=== PATIENT | male | born 1960 | race Caucasian/White ===

== ENCOUNTER 2017-12-22 10:48 | Inpatient (IN) | payer MEDICARE, MEDICAID ==
[~2017-12-22] VITALS: Ht 167.6 cm; Wt 78.2 kg
[2017-12-22] MEDS ORDERED: DEXTROSE (50%) 50ML SYRG IV ONE (11:15)
[2017-12-22 12:09] LABS: Urine Bacteria NONE SEEN /hpf (None Seen); Urine Blood Negative /uL (Negative); Urine Specific Gravity 1.016 (1.001-1.035); Urine WBC 1 /hpf (0 - 3)
[2017-12-22 12:10] LABS: Basophils # (auto) 0.1 uL; Basophils % (auto) 0.4 % (0.0-2.0); Eosinophils # (auto) 0.4 uL; Hematocrit 36.5 % (41.0-53.0); Hemoglobin 11.8 g/dL (13.5-17.5); Lymphocytes # (auto) 0.9 uL; Lymphocytes % (auto) 7.9 % (10.0-50.0); Mean Corpuscular Hemoglobin 28.6 pg (28.0-32.0); Mean Corpuscular Hgb Conc. 32.4 g/dL (32.0-36.0); Mean Corpuscular Volume 88.1 fL (80.0-100.0); Monocytes # (auto) 0.9 uL; Monocytes % (auto) 7.7 % (0.0-12.0); Neutrophils # (auto) 9.5 uL; Platelet Count (auto) 376 10^3/uL (140-450); Red Blood Cells 4.14 10^6/uL (4.5-5.90); Red Cell Distribution Width 17.6 % (11.8-14.3); White Blood Cell 11.7 10^3/uL (4.4-10.8)
[2017-12-22 12:29] LABS: Albumin 3.2 g/dL (3.4-5.0); BUN/Creatinine Ratio 23.5; Calcium 8.4 mg/dL (8.5-10.1); Magnesium 2.2 mg/dL (1.6-2.6); Potassium 4.1 mmol/L (3.5-5.1)
[2017-12-22 12:32] LABS: Bilirubin, Total 0.1 mg/dL (0.2-1.0); Total Protein 6.8 g/dL (6.4-8.2)
[2017-12-22] MEDS ORDERED: LISINOPRIL 10 MG TAB PO ONE (16:00)
[2017-12-22] MEDS ORDERED: ONDANSETRON HCL 4 MG/2 ML VIAL IV PRN (16:00)
[2017-12-22] MEDS ORDERED: MORPHINE SULFATE 8mg/ml INJ SDV IV PRN (16:00)
[2017-12-22] MEDS ORDERED: cloNIDine HCL 0.1 MG TAB PO PRN (16:00)
[2017-12-22] MEDS ORDERED: DEXTROSE (50%) 50ML SYRG IV PRN (16:00)
[2017-12-22] MEDS: ACCU-CHEK COMFORT CURVE STRIP VI SCH (16:47)
[2017-12-22] MEDS: InsuLIN REG 1unit/0.01ml Soln (100units/ml) SC SCH (16:49)
[2017-12-22] MEDS: SODIUM CHLORIDE 0.9% 1,000 ML IV SCH (16:53)
[2017-12-22] MEDS: ENOXAPARIN SOD 40 MG/0.4 ML SYRINGE SC SCH (16:54)
[2017-12-22 21:30] VITALS: BP 150/80
[2017-12-22 21:45] VITALS: BP 150/80
[2017-12-23] MEDS: InsuLIN REG 1unit/0.01ml Soln (100units/ml) SC SCH ×5 (00:30→21:54)
[2017-12-23] MEDS: ACCU-CHEK COMFORT CURVE STRIP VI SCH ×5 (00:30→21:54)
[2017-12-23 05:03] VITALS: BP 156/66
[2017-12-23] MEDS: SODIUM CHLORIDE 0.9% 1,000 ML IV SCH (05:04)
[2017-12-23 05:57] LABS: Basophils # (auto) 0.1 uL; Basophils % (auto) 1.1 % (0.0-2.0); Eosinophils # (auto) 0.6 uL; Eosinophils % (auto) 7.3 % (0.0-7.0); Hematocrit 35.9 % (41.0-53.0); Hemoglobin 11.8 g/dL (13.5-17.5); Lymphocytes # (auto) 2.1 uL; Lymphocytes % (auto) 23.2 % (10.0-50.0); Mean Corpuscular Hemoglobin 29.1 pg (28.0-32.0); Monocytes # (auto) 0.8 uL; Monocytes % (auto) 8.5 % (0.0-12.0); Neutrophils # (auto) 5.3 uL; Neutrophils % (auto) 59.9 % (37.0-80.0); Nucleated Red Blood Cells % 0.2 %; Platelet Count (auto) 399 10^3/uL (140-450); Red Blood Cells 4.07 10^6/uL (4.5-5.90); Red Cell Distribution Width 17.7 % (11.8-14.3); White Blood Cell 8.9 10^3/uL (4.4-10.8)
[2017-12-23 06:10] LABS: Calcium 8.8 mg/dL (8.5-10.1); Potassium 3.9 mmol/L (3.5-5.1)
[2017-12-23 08:00] VITALS: BP 162/74
[2017-12-23 09:00] VITALS: BP 162/74
[2017-12-23] MEDS: PANTOPRAZOLE 40 MG TAB PO SCH (09:47)
[2017-12-23] MEDS: LISINOPRIL 10 MG TAB PO SCH (09:48)
[2017-12-23] MEDS: ENOXAPARIN SOD 40 MG/0.4 ML SYRINGE SC SCH (09:49)
[2017-12-23 13:00] VITALS: BP 159/82
[2017-12-23 16:57] VITALS: BP 157/78
[2017-12-23 22:24] VITALS: BP 171/87
[2017-12-24] MEDS: SODIUM CHLORIDE 0.9% 1,000 ML IV SCH ×2 (00:12→10:00)
[2017-12-24 05:28] VITALS: BP 148/98
[2017-12-24] MEDS: ACCU-CHEK COMFORT CURVE STRIP VI SCH ×4 (06:31→21:33)
[2017-12-24] MEDS: InsuLIN REG 1unit/0.01ml Soln (100units/ml) SC SCH ×4 (06:31→21:33)
[2017-12-24 08:00] VITALS: BP 127/75
[2017-12-24 09:00] VITALS: BP 127/75
[2017-12-24] MEDS: PANTOPRAZOLE 40 MG TAB PO SCH (09:33)
[2017-12-24] MEDS: ENOXAPARIN SOD 40 MG/0.4 ML SYRINGE SC SCH (09:34)
[2017-12-24] MEDS: LISINOPRIL 10 MG TAB PO SCH (09:34)
[2017-12-24] MEDS: HYDROcodone-ACET 5/325MG TAB PO PRN ×2 (11:53→23:20)
[2017-12-24 14:00] VITALS: BP 156/89
[2017-12-24 17:00] VITALS: BP 140/86
[2017-12-24 21:34] VITALS: BP 157/86
[2017-12-25] MEDS: SODIUM CHLORIDE 0.9% 1,000 ML IV SCH (02:06)
[2017-12-25 05:00] VITALS: BP 139/66
[2017-12-25] MEDS: ACCU-CHEK COMFORT CURVE STRIP VI SCH (06:45)
[2017-12-25] MEDS: InsuLIN REG 1unit/0.01ml Soln (100units/ml) SC SCH (06:45)
[2017-12-25] MEDS: PANTOPRAZOLE 40 MG TAB PO SCH (08:37)
[2017-12-25] MEDS: LISINOPRIL 10 MG TAB PO SCH (08:37)
[2017-12-25] MEDS: ENOXAPARIN SOD 40 MG/0.4 ML SYRINGE SC SCH (08:38)
[2017-12-25 09:00] VITALS: BP 141/79
[2017-12-25 13:00] VITALS: BP 163/89
== END 2017-12-25 15:30 | disposition home or self-care (01) | DRG 637 ==
LOC: ER 10:48 → OVERFLOW 10:49 → WEST WING 21:15
PROVIDERS: ADMIT Internal Medicine; ATTEND Internal Medicine
DX: E10.649 Type 1 diabetes mellitus with hypoglycemia without coma (principal); G93.40 Encephalopathy, unspecified; F17.200 Nicotine dependence, unspecified, uncomplicated; I10 Essential (primary) hypertension; Z86.73 Personal history of transient ischemic attack (TIA), and cerebral infarction without residual deficits; Z79.4 Long term (current) use of insulin
CPT/HCPCS: 36415; 71045; 80048; 80053; 81001; 82962; 83036; 83735; 85025; 93005; 94761; 96374; 96375; 97163; J1815; J2270

== ENCOUNTER 2018-01-08 18:13 | Inpatient (IN) | payer MEDICARE, MEDICAID ==
[~2018-01-08] VITALS: Ht 165.1 cm; Wt 75.5 kg
[2018-01-08 20:06] LABS: Basophils # (auto) 0.1 uL; Basophils % (auto) 1.3 % (0.0-2.0); Eosinophils # (auto) 0.5 uL; Eosinophils % (auto) 5.9 % (0.0-7.0); Hemoglobin 11.2 g/dL (13.5-17.5); Lymphocytes # (auto) 1.7 uL; Lymphocytes % (auto) 22.6 % (10.0-50.0); Mean Corpuscular Hgb Conc. 32.9 g/dL (32.0-36.0); Mean Corpuscular Volume 88.3 fL (80.0-100.0); Monocytes # (auto) 0.7 uL; Monocytes % (auto) 8.8 % (0.0-12.0); Neutrophils # (auto) 4.7 uL; Neutrophils % (auto) 61.4 % (37.0-80.0); Nucleated Red Blood Cells % 0.1 %; Platelet Count (auto) 418 10^3/uL (140-450); Red Blood Cells 3.85 10^6/uL (4.5-5.90); Red Cell Distribution Width 17.3 % (11.8-14.3); White Blood Cell 7.7 10^3/uL (4.4-10.8)
[2018-01-08 20:24] LABS: Albumin 3.6 g/dL (3.4-5.0); Calcium 8.8 mg/dL (8.5-10.1); Potassium 5.1 mmol/L (3.5-5.1)
[2018-01-08 20:26] LABS: Bilirubin, Total 0.3 mg/dL (0.2-1.0); Total Protein 7.5 g/dL (6.4-8.2)
[2018-01-08 20:38] LABS: BUN/Creatinine Ratio 23.4
[2018-01-08] MEDS ORDERED: SODIUM CHLORIDE 0.9% 1,000 ML IV ONE ×2 (20:56→21:30)
[2018-01-08] MEDS ORDERED: InsuLIN REG 1unit/0.01ml Soln (100units/ml) IV ONE (21:00)
[2018-01-08] MEDS ORDERED: TEMAZEPAM 15 MG CAP PO PRN (21:30)
[2018-01-08] MEDS ORDERED: DEXTROSE (50%) 50ML SYRG IV PRN (21:30)
[2018-01-08] MEDS ORDERED: ONDANSETRON HCL 4 MG/2 ML VIAL IV PRN (21:30)
[2018-01-08] MEDS ORDERED: ACETAMINOPHEN 500 MG TAB PO PRN (21:30)
[2018-01-08] MEDS ORDERED: HYDROcodone-ACET 5/325MG TAB PO PRN (21:30)
[2018-01-08] MEDS ORDERED: LORazepam 2MG/ML-1ML VIAL IV PRN (22:15)
[2018-01-09] VITALS: BP 150/82
[2018-01-09] MEDS: ACCU-CHEK COMFORT CURVE STRIP VI SCH ×5 (02:02→16:00)
[2018-01-09] MEDS: InsuLIN REG 1unit/0.01ml Soln (100units/ml) SC SCH ×5 (02:03→16:00)
[2018-01-09] MEDS ORDERED: InsuLIN REG 1unit/0.01ml Soln (100units/ml) IV ONE (02:30)
[2018-01-09] MEDS: SODIUM CHLORIDE 0.9% 1,000 ML IV SCH ×2 (02:57→12:30)
[2018-01-09 05:00] VITALS: BP 124/70
[2018-01-09] MEDS: GABAPENTIN 300 MG CAP PO SCH ×2 (07:10→14:00)
[2018-01-09 09:00] VITALS: BP 127/80
[2018-01-09 13:00] VITALS: BP 128/79
[2018-01-09 16:17] LABS: Basophils # (auto) 0.1 uL; Basophils % (auto) 0.8 % (0.0-2.0); Eosinophils # (auto) 0.7 uL; Eosinophils % (auto) 9.4 % (0.0-7.0); Hematocrit 35.9 % (41.0-53.0); Hemoglobin 11.8 g/dL (13.5-17.5); Lymphocytes # (auto) 1.9 uL; Lymphocytes % (auto) 23.4 % (10.0-50.0); Mean Corpuscular Hemoglobin 29.1 pg (28.0-32.0); Mean Corpuscular Volume 88.2 fL (80.0-100.0); Monocytes # (auto) 0.8 uL; Monocytes % (auto) 10.2 % (0.0-12.0); Neutrophils # (auto) 4.4 uL; Neutrophils % (auto) 56.2 % (37.0-80.0); Nucleated Red Blood Cells % 0.1 %; Platelet Count (auto) 436 10^3/uL (140-450); Red Blood Cells 4.07 10^6/uL (4.5-5.90); Red Cell Distribution Width 17.2 % (11.8-14.3); White Blood Cell 7.9 10^3/uL (4.4-10.8)
[2018-01-09 16:21] LABS: BUN/Creatinine Ratio 18.3; Calcium 8.7 mg/dL (8.5-10.1); Potassium 4.8 mmol/L (3.5-5.1)
[2018-01-09 16:52] VITALS: BP 153/81
== END 2018-01-09 18:49 | disposition home health service (06) | DRG 637 ==
LOC: ER 18:13 → OVERFLOW 18:14 → CENTRAL 23:30
PROVIDERS: ADMIT Nurse Practitioner Family; ATTEND Internal Medicine
DX: E11.65 Type 2 diabetes mellitus with hyperglycemia (principal); N17.0 Acute kidney failure with tubular necrosis; I11.9 Hypertensive heart disease without heart failure; D64.9 Anemia, unspecified; E86.0 Dehydration; E78.5 Hyperlipidemia, unspecified; J44.9 Chronic obstructive pulmonary disease, unspecified; Z96.649 Presence of unspecified artificial hip joint; Z79.4 Long term (current) use of insulin; Z86.73 Personal history of transient ischemic attack (TIA), and cerebral infarction without residual deficits; Z91.14 Patient's other noncompliance with medication regimen
CPT/HCPCS: 36415; 71046; 80048; 80053; 82010; 82962; 85025; 87081; 94761; 96374; J1815